=== PATIENT | male | born 1940 | race Caucasian/White ===

== ENCOUNTER 2022-07-06 17:28 | Inpatient (IN) | payer OTHER ==
[~2022-07-06] VITALS: Ht 170.2 cm; Wt 66.7 kg
[~2022-07-06 17:28] MED LIST: DIPH25CA83 PO; FAMO20TA8 PO; PRED20TA PO
[2022-07-06 17:36] VITALS: BP_SYST 181
[2022-07-06 18:07] LABS: BASOPHILS # (AUTO) 0.1 K/uL (0.0-0.2); BASOPHILS % (AUTO) 0.4 % (0.0-2.0); HEMATOCRIT 44.8 % (36-54); HEMOGLOBIN 14.6 g/dL (14.0-18.0); LYMPHOCYTES # (AUTO) 1.2 K/uL (1.0-5.5); LYMPHOCYTES % (AUTO) 8.4 % (20.5-51.5); MEAN CORPUSCULAR HEMOGLOBIN 30 pg (27-31); MEAN CORPUSCULAR HGB CONC 33 % (32-36); MEAN CORPUSCULAR VOLUME 90 fL (79.0-98.0); MONOCYTES # (AUTO) 0.8 K/uL (0.0-1.0); MONOCYTES % (AUTO) 5.4 % (1.7-9.3); NEUTROPHILS # (AUTO) 12.4 K/uL (1.8-7.7); NEUTROPHILS % (AUTO) 85.8 % (40.0-70.0); PLATELET COUNT (AUTO) 71 K/uL (130-430); RED BLOOD CELL COUNT(AUTO) 4.95 MIL/uL (4.2-6.2); RED CELL DISTRIBUTION WIDTH 15.5 % (9.0-15.0); WHITE BLOOD COUNT (AUTO) 14.5 K/uL (4.8-10.8)
[2022-07-06 18:14] LABS: ANION GAP 18 (5-15); CALCIUM 9.9 mg/dL (8.4-11.0); CHLORIDE 110 mmol/L (98-107); GLUCOSE 123 mg/dL (70-99)
[2022-07-06 18:28] LABS: ALANINE AMINOTRANSFERASE 33 U/L (12-78); ALBUMIN 3.6 g/dL (3.4-4.8); ASPARTATE AMINOTRANSFERASE 35 U/L (10-37); PHOSPHORUS 6.6 mg/dL (2.7-4.5); TOTAL BILIRUBIN 0.7 mg/dL (0.0-1.0)
[2022-07-06 18:31] LABS: UREA NITROGEN, BLOOD 114 mg/dL (8-21)
[2022-07-06] MEDS ORDERED: cefTRIAXone 1 GM in D5W 50 ML IV ONE (18:45)
[2022-07-06] MEDS ORDERED: NACL 0.9% 2,000 ML IV ONE (18:45)
[2022-07-06 19:07] LABS: CKMB RELATIVE INDEX 0.4 (0.0-2.9); CREATINE KINASE MB 5.6 ng/mL (0-3.6)
[2022-07-06 19:23] LABS: INR 1.4 (0.80-1.20)
[2022-07-06] MEDS ORDERED: ONDANSETRON HCL 4 MG/2 ML VIAL IVP PRN (20:00)
[2022-07-06 20:13] LABS: BILIRUBIN,URINE 1+ (NEGATIVE); BLOOD, URINE 3+ (NEGATIVE); CLARITY/URINE SL CLOUDY (CLEAR); COLOR,URINE YELLOW (YELLOW); GLUCOSE,URINE NEGATIVE (NEGATIVE); KETONES,URINE TRACE (NEGATIVE); LEUKOCYTE ESTERASE ,URINE NEGATIVE (NEGATIVE); NITRITE, URINE NEGATIVE (NEGATIVE); PROTEIN URINE 2+ (NEGATIVE); UROBILINOGEN,URINE 0.2 (0.2-1.0)
[2022-07-06] MEDS ORDERED: LISI20TA30 PO (20:14)
[2022-07-06] MEDS ORDERED: SER25 PO (20:14)
[2022-07-06] MEDS ORDERED: cefTRIAXone 1 GM VIAL ONE (20:14)
[2022-07-06] MEDS ORDERED: LOSA25TA3 PO (20:18)
[2022-07-06 20:46] LABS: BACTERIA,URINE FEW /HPF (None Seen)
[2022-07-06 20:47] LABS: COARSE GRANULAR CASTS,URINE 0-10 /LPF (None Seen); FINE GRANULAR CASTS,URINE 0-10 /LPF (None Seen); MUCUS,URINE None Seen /LPF (None Seen); URINE AMORPHOUS URATE 3+ /HPF (None Seen)
[2022-07-06 21:00] LABS: BARBITURATE, URINE NEGATIVE (NEG <=200); BENZODIAZEPINE, URINE NEGATIVE (NEG <=150); CANNABINOID, URINE NEGATIVE (NEG <=50); COCAINE, URINE NEGATIVE (NEG <=150); METHAMPHETAMINES SCREEN,URINE NEGATIVE (NEG <=500); PHENCYCLIDINE SCREEN,URINE NEGATIVE (NEG <=25); URINE AMPHETAMINE NEGATIVE (NEG <=500); URINE METHADONE NEGATIVE (NEG <=200)
[2022-07-06 21:01] LABS: OPIATE, URINE NEGATIVE (NEG <=100); UR TRICYCLIC ANTIDEPRESSANTS POSITIVE (NEG <=300); URINE OXYCODONE SCREEN NEGATIVE (NEG <=100); URINE PROPOXYPHENE SCREEN NEGATIVE (NEG <=300)
[2022-07-06] MEDS: NACL 0.9% 1,000 ML IV SCH ×2 (21:11→23:37)
[2022-07-06 22:30] VITALS: BP_SYST 132
[2022-07-06 22:48] VITALS: BP_SYST 132
[2022-07-07 03:02] VITALS: BP_SYST 128
[2022-07-07] MEDS: QUEtiapine FUMARATE 25 MG TABLET PO SCH ×2 (10:03→21:06)
[2022-07-07] MEDS: LORazepam 2 MG/ML VIAL IVP PRN ×2 (10:05→17:19)
[2022-07-07 12:12] VITALS: BP_SYST 146
[2022-07-07] MEDS: 0.45% NACL 1,000 ML IV SCH (14:13)
[2022-07-07 16:38] VITALS: BP_SYST 117
[2022-07-07 20:00] VITALS: BP_SYST 132
[2022-07-08] VITALS: BP_SYST 141
[2022-07-08] MEDS: 0.45% NACL 1,000 ML IV SCH ×3 (00:03→22:00)
[2022-07-08] MEDS: LORazepam 2 MG/ML VIAL IVP PRN ×2 (00:12→15:03)
[2022-07-08 04:00] VITALS: BP_SYST 163
[2022-07-08 05:00] VITALS: BP_SYST 149
[2022-07-08 05:18] LABS: BASOPHILS # (AUTO) 0.1 K/uL (0.0-0.2); BASOPHILS % (AUTO) 0.9 % (0.0-2.0); EOSINOPHILS # (AUTO) 0.1 K/uL (0.0-0.4); EOSINOPHILS % (AUTO) 1.8 % (0.0-4.0); HEMATOCRIT 36.7 % (36-54); HEMOGLOBIN 12.1 g/dL (14.0-18.0); LYMPHOCYTES # (AUTO) 0.9 K/uL (1.0-5.5); LYMPHOCYTES % (AUTO) 11.1 % (20.5-51.5); MEAN CORPUSCULAR HEMOGLOBIN 30 pg (27-31); MEAN CORPUSCULAR HGB CONC 33 % (32-36); MEAN CORPUSCULAR VOLUME 91 fL (79.0-98.0); MONOCYTES # (AUTO) 0.5 K/uL (0.0-1.0); MONOCYTES % (AUTO) 6.6 % (1.7-9.3); NEUTROPHILS # (AUTO) 6.2 K/uL (1.8-7.7); NEUTROPHILS % (AUTO) 79.6 % (40.0-70.0); PLATELET COUNT (AUTO) 83 K/uL (130-430); RED BLOOD CELL COUNT(AUTO) 4.02 MIL/uL (4.2-6.2); RED CELL DISTRIBUTION WIDTH 15.2 % (9.0-15.0); WHITE BLOOD COUNT (AUTO) 7.8 K/uL (4.8-10.8)
[2022-07-08 05:50] LABS: ANION GAP 12 (5-15); CALCIUM 8.8 mg/dL (8.4-11.0); CREATININE 2.13 mg/dL (0.55-1.30); GLUCOSE 109 mg/dL (70-99); UREA NITROGEN, BLOOD 76 mg/dL (8-21)
[2022-07-08 05:59] LABS: CHLORIDE 121 mmol/L (98-107)
[2022-07-08 08:05] VITALS: BP_SYST 160
[2022-07-08] MEDS: QUEtiapine FUMARATE 25 MG TABLET PO SCH ×2 (09:18→20:35)
[2022-07-08 14:28] VITALS: BP_SYST 163
[2022-07-08 20:00] VITALS: BP_SYST 149
[2022-07-08] MEDS: ACETAMINOPHEN 325 MG TABLET PO PRN (20:36)
[2022-07-09] VITALS: BP_SYST 134
[2022-07-09] MEDS: 0.45% NACL 1,000 ML IV SCH (03:00)
[2022-07-09] MEDS: LORazepam 2 MG/ML VIAL IVP PRN ×2 (05:03→22:41)
[2022-07-09 05:41] LABS: BASOPHILS % (AUTO) 0.7 % (0.0-2.0); EOSINOPHILS # (AUTO) 0.2 K/uL (0.0-0.4); EOSINOPHILS % (AUTO) 2.7 % (0.0-4.0); HEMATOCRIT 36.1 % (36-54); HEMOGLOBIN 12.1 g/dL (14.0-18.0); LYMPHOCYTES # (AUTO) 0.9 K/uL (1.0-5.5); LYMPHOCYTES % (AUTO) 12.4 % (20.5-51.5); MEAN CORPUSCULAR HEMOGLOBIN 30 pg (27-31); MEAN CORPUSCULAR HGB CONC 34 % (32-36); MEAN CORPUSCULAR VOLUME 89 fL (79.0-98.0); MONOCYTES # (AUTO) 0.5 K/uL (0.0-1.0); MONOCYTES % (AUTO) 6.7 % (1.7-9.3); NEUTROPHILS # (AUTO) 5.4 K/uL (1.8-7.7); NEUTROPHILS % (AUTO) 77.5 % (40.0-70.0); PLATELET COUNT (AUTO) 52 K/uL (130-430); RED BLOOD CELL COUNT(AUTO) 4.05 MIL/uL (4.2-6.2)
[2022-07-09 06:40] LABS: ANION GAP 13 (5-15); CALCIUM 8.5 mg/dL (8.4-11.0); CREATININE 1.34 mg/dL (0.55-1.30); GLUCOSE 101 mg/dL (70-99); UREA NITROGEN, BLOOD 46 mg/dL (8-21)
[2022-07-09 07:05] LABS: CHLORIDE 120 mmol/L (98-107)
[2022-07-09] MEDS: QUEtiapine FUMARATE 25 MG TABLET PO SCH (10:37)
[2022-07-09 12:38] VITALS: BP_SYST 138
[2022-07-09] MEDS ORDERED: HALOPERIDOL LACTATE 5 MG/ML VIAL IVP PRN (16:00)
[2022-07-09] MEDS: D5W 1,000 ML IV SCH ×2 (16:08→20:00)
[2022-07-09 16:09] VITALS: BP_SYST 136
[2022-07-09 20:00] VITALS: BP_SYST 148
[2022-07-10] VITALS: BP_SYST 131
[2022-07-10] MEDS: D5W 1,000 ML IV SCH ×3 (03:40→19:50)
[2022-07-10 07:12] LABS: BASOPHILS # (AUTO) 0.1 K/uL (0.0-0.2); BASOPHILS % (AUTO) 0.7 % (0.0-2.0); EOSINOPHILS # (AUTO) 0.3 K/uL (0.0-0.4); EOSINOPHILS % (AUTO) 2.7 % (0.0-4.0); HEMATOCRIT 37.4 % (36-54); HEMOGLOBIN 12.6 g/dL (14.0-18.0); LYMPHOCYTES # (AUTO) 1.3 K/uL (1.0-5.5); LYMPHOCYTES % (AUTO) 13.1 % (20.5-51.5); MEAN CORPUSCULAR HEMOGLOBIN 30 pg (27-31); MEAN CORPUSCULAR HGB CONC 34 % (32-36); MEAN CORPUSCULAR VOLUME 89 fL (79.0-98.0); MONOCYTES # (AUTO) 0.6 K/uL (0.0-1.0); MONOCYTES % (AUTO) 6.4 % (1.7-9.3); NEUTROPHILS # (AUTO) 7.5 K/uL (1.8-7.7); NEUTROPHILS % (AUTO) 77.1 % (40.0-70.0); PLATELET COUNT (AUTO) 61 K/uL (130-430); RED BLOOD CELL COUNT(AUTO) 4.23 MIL/uL (4.2-6.2); RED CELL DISTRIBUTION WIDTH 14.5 % (9.0-15.0); WHITE BLOOD COUNT (AUTO) 9.7 K/uL (4.8-10.8)
[2022-07-10 07:31] LABS: ANION GAP 10 (5-15); CALCIUM 8.4 mg/dL (8.4-11.0); CHLORIDE 110 mmol/L (98-107); CREATININE 1.24 mg/dL (0.55-1.30); GLUCOSE 167 mg/dL (70-99); UREA NITROGEN, BLOOD 29 mg/dL (8-21)
[2022-07-10 08:00] VITALS: BP_SYST 144
[2022-07-10] MEDS ORDERED: HALOPERIDOL LACTATE 5 MG/ML VIAL IM PRN (10:45)
[2022-07-10] MEDS ORDERED: ARIPiprazole 2 MG TAB PO ONE (12:15)
[2022-07-10 12:26] VITALS: BP_SYST 135
[2022-07-10] MEDS ORDERED: POTASSIUM CHLORIDE 40 MEQ, LIDOCAINE JECT 2% PF 100 MG 50 MG in NS 250 ML IV ONE (12:30)
[2022-07-10] MEDS: ENOXAPARIN SODIUM 40 MG/0.4 ML SYRINGE SUBCUT SCH (15:26)
[2022-07-10 16:51] VITALS: BP_SYST 140
[2022-07-10 20:00] VITALS: BP_SYST 148
[2022-07-11 01:19] VITALS: BP_SYST 143
[2022-07-11] MEDS: D5W 1,000 ML IV SCH ×2 (04:00→14:06)
[2022-07-11 06:20] LABS: BASOPHILS # (AUTO) 0.1 K/uL (0.0-0.2); BASOPHILS % (AUTO) 0.6 % (0.0-2.0); EOSINOPHILS # (AUTO) 0.3 K/uL (0.0-0.4); EOSINOPHILS % (AUTO) 2.9 % (0.0-4.0); HEMOGLOBIN 12.4 g/dL (14.0-18.0); LYMPHOCYTES # (AUTO) 1.5 K/uL (1.0-5.5); LYMPHOCYTES % (AUTO) 16.6 % (20.5-51.5); MEAN CORPUSCULAR HEMOGLOBIN 30 pg (27-31); MEAN CORPUSCULAR HGB CONC 34 % (32-36); MEAN CORPUSCULAR VOLUME 89 fL (79.0-98.0); MONOCYTES # (AUTO) 0.6 K/uL (0.0-1.0); MONOCYTES % (AUTO) 6.9 % (1.7-9.3); NEUTROPHILS # (AUTO) 6.6 K/uL (1.8-7.7); PLATELET COUNT (AUTO) 81 K/uL (130-430); RED BLOOD CELL COUNT(AUTO) 4.18 MIL/uL (4.2-6.2); RED CELL DISTRIBUTION WIDTH 14.1 % (9.0-15.0)
[2022-07-11 06:33] LABS: ALANINE AMINOTRANSFERASE 84 U/L (12-78); ALBUMIN 2.2 g/dL (3.4-4.8); ANION GAP 8 (5-15); ASPARTATE AMINOTRANSFERASE 87 U/L (10-37); CALCIUM 8.3 mg/dL (8.4-11.0); CHLORIDE 103 mmol/L (98-107); CREATININE 1.21 mg/dL (0.55-1.30); GLUCOSE 141 mg/dL (70-99); TOTAL BILIRUBIN 0.8 mg/dL (0.0-1.0); UREA NITROGEN, BLOOD 18 mg/dL (8-21)
[2022-07-11 08:00] VITALS: BP_SYST 140
[2022-07-11] MEDS: ARIPiprazole 2 MG TAB PO SCH (10:33)
[2022-07-11 12:13] VITALS: BP_SYST 142
[2022-07-11] MEDS: ENOXAPARIN SODIUM 40 MG/0.4 ML SYRINGE SUBCUT SCH (14:08)
[2022-07-11] MEDS ORDERED: POTASSIUM CHLORIDE 20 MEQ/PKT PACKET PO ONE (15:15)
[2022-07-11 16:00] VITALS: BP_SYST 141
[2022-07-11 20:00] VITALS: BP_SYST 125
[2022-07-11] MEDS: 0.45% NACL 1,000 ML IV SCH (21:00)
[2022-07-12 01:05] VITALS: BP_SYST 139
[2022-07-12 05:14] LABS: ALANINE AMINOTRANSFERASE 68 U/L (12-78); ANION GAP 9 (5-15); ASPARTATE AMINOTRANSFERASE 53 U/L (10-37); CALCIUM 8.1 mg/dL (8.4-11.0); CHLORIDE 104 mmol/L (98-107); CREATININE 0.96 mg/dL (0.55-1.30); GLUCOSE 111 mg/dL (70-99); TOTAL BILIRUBIN 0.5 mg/dL (0.0-1.0); UREA NITROGEN, BLOOD 11 mg/dL (8-21)
[2022-07-12] MEDS: 0.45% NACL 1,000 ML IV SCH ×2 (05:45→15:02)
[2022-07-12 06:12] LABS: BASOPHILS # (AUTO) 0.1 K/uL (0.0-0.2); BASOPHILS % (AUTO) 0.7 % (0.0-2.0); EOSINOPHILS # (AUTO) 0.2 K/uL (0.0-0.4); EOSINOPHILS % (AUTO) 2.8 % (0.0-4.0); HEMATOCRIT 36.2 % (36-54); HEMOGLOBIN 12.4 g/dL (14.0-18.0); LYMPHOCYTES # (AUTO) 1.5 K/uL (1.0-5.5); LYMPHOCYTES % (AUTO) 18.8 % (20.5-51.5); MEAN CORPUSCULAR HEMOGLOBIN 30 pg (27-31); MEAN CORPUSCULAR HGB CONC 34 % (32-36); MEAN CORPUSCULAR VOLUME 88 fL (79.0-98.0); MONOCYTES # (AUTO) 0.6 K/uL (0.0-1.0); MONOCYTES % (AUTO) 7.5 % (1.7-9.3); NEUTROPHILS # (AUTO) 5.6 K/uL (1.8-7.7); NEUTROPHILS % (AUTO) 70.2 % (40.0-70.0); PLATELET COUNT (AUTO) 99 K/uL (130-430); RED BLOOD CELL COUNT(AUTO) 4.11 MIL/uL (4.2-6.2); RED CELL DISTRIBUTION WIDTH 14.4 % (9.0-15.0); WHITE BLOOD COUNT (AUTO) 8.1 K/uL (4.8-10.8)
[2022-07-12] MEDS: ARIPiprazole 2 MG TAB PO SCH (09:40)
[2022-07-12 11:15] VITALS: BP_SYST 118
[2022-07-12] MEDS: ACETAMINOPHEN 325 MG TABLET PO PRN (12:10)
[2022-07-12] MEDS ORDERED: POTASSIUM CHLORIDE 20 MEQ TAB.PRT.SR PO ONE (13:30)
[2022-07-12] MEDS: ENOXAPARIN SODIUM 40 MG/0.4 ML SYRINGE SUBCUT SCH (15:00)
[2022-07-12 15:40] VITALS: BP_SYST 113
[2022-07-12] MEDS ORDERED: NACL 0.9% 1,000 ML IV SCH (21:00)
[2022-07-12 22:56] LABS: ANION GAP 9 (5-15); CALCIUM 8.1 mg/dL (8.4-11.0); CHLORIDE 104 mmol/L (98-107); CREATININE 1.07 mg/dL (0.55-1.30); GLUCOSE 137 mg/dL (70-99); UREA NITROGEN, BLOOD 16 mg/dL (8-21)
[2022-07-13 00:21] VITALS: BP_SYST 130
[2022-07-13] MEDS: LORazepam 2 MG/ML VIAL IVP PRN (02:56)
[2022-07-13 07:23] LABS: BASOPHILS # (AUTO) 0.1 K/uL (0.0-0.2); BASOPHILS % (AUTO) 0.7 % (0.0-2.0); EOSINOPHILS # (AUTO) 0.3 K/uL (0.0-0.4); HEMATOCRIT 35.4 % (36-54); HEMOGLOBIN 12.2 g/dL (14.0-18.0); LYMPHOCYTES # (AUTO) 1.5 K/uL (1.0-5.5); LYMPHOCYTES % (AUTO) 19.2 % (20.5-51.5); MEAN CORPUSCULAR HEMOGLOBIN 30 pg (27-31); MEAN CORPUSCULAR HGB CONC 34 % (32-36); MEAN CORPUSCULAR VOLUME 87 fL (79.0-98.0); MONOCYTES # (AUTO) 0.5 K/uL (0.0-1.0); NEUTROPHILS # (AUTO) 5.3 K/uL (1.8-7.7); NEUTROPHILS % (AUTO) 69.1 % (40.0-70.0); PLATELET COUNT (AUTO) 137 K/uL (130-430); RED BLOOD CELL COUNT(AUTO) 4.05 MIL/uL (4.2-6.2); RED CELL DISTRIBUTION WIDTH 14.4 % (9.0-15.0); WHITE BLOOD COUNT (AUTO) 7.7 K/uL (4.8-10.8)
[2022-07-13 07:34] LABS: PHOSPHORUS 1.9 mg/dL (2.7-4.5)
[2022-07-13 08:00] VITALS: BP_SYST 137
[2022-07-13] MEDS: ARIPiprazole 2 MG TAB PO SCH (09:43)
[2022-07-13] MEDS ORDERED: NA PHOS 15 MM in NS 250 ML IV ONE (14:00)
[2022-07-13] MEDS: ENOXAPARIN SODIUM 40 MG/0.4 ML SYRINGE SUBCUT SCH (16:14)
[2022-07-13 16:47] VITALS: BP_SYST 136
[2022-07-13] MEDS ORDERED: SER25 PO (17:33)
[2022-07-13] MEDS ORDERED: LOSA25TA3 PO (17:33)
== END 2022-07-13 18:30 | disposition home health service (06) | DRG 871 ==
LOC: SED 17:28 → STU 20:00 → SMU 07-10 11:22
PROVIDERS: ADMIT Internal Medicine; ATTEND Internal Medicine
DX: A41.9 Sepsis, unspecified organism (principal); G92.8 Other toxic encephalopathy; N17.0 Acute kidney failure with tubular necrosis; E87.0 Hyperosmolality and hypernatremia; N39.0 Urinary tract infection, site not specified; E46 Unspecified protein-calorie malnutrition; F23 Brief psychotic disorder; F19.921 Other psychoactive substance use, unspecified with intoxication with delirium; E86.0 Dehydration; K29.70 Gastritis, unspecified, without bleeding; E87.6 Hypokalemia; R62.7 Adult failure to thrive; D69.6 Thrombocytopenia, unspecified; F03.90 Unspecified dementia, unspecified severity, without behavioral disturbance, psychotic disturbance, mood disturbance, and anxiety; I10 Essential (primary) hypertension; Z20.822 Contact with and (suspected) exposure to COVID-19; Z88.0 Allergy status to penicillin; Z79.899 Other long term (current) drug therapy; Z68.23 Body mass index [BMI] 23.0-23.9, adult
CPT/HCPCS: 36415; 70450-TC; 71045; 76376; 76770; 80048; 80053; 80307; 81000; 82140; 82550; 82553; 83605; 83735; 83970; 84100; 84484; 85025; 85610-TC; 85730-TC; 86886; 86900; 86901; 87040; 87081; 92610-GN; 93005; 96365; 97110-GP; 97112-GP; 97116-GP; 97530-GP; 99291; G0378; J0696; J1630; J1650; J2060; J3480; J7050; J7060

== ENCOUNTER 2023-04-07 15:42 | Emergency (ER) | payer OTHER ==
[~2023-04-07] VITALS: Ht 172.7 cm; Wt 81.6 kg
[~2023-04-07 15:42] MED LIST changes: -DIPH25CA83 PO; -FAMO20TA8 PO; +LOSA-412 PO; -PRED20TA PO; +SER25 PO
[2023-04-07 15:54] VITALS: BP_SYST 163; PULSE 102; RESP 18; TEMP 97.9; O2SAT 98
[2023-04-07 16:43] LABS: BASOPHILS # (AUTO) 0.1 K/uL (0.0-0.2); BASOPHILS % (AUTO) 0.9 % (0.0-2.0); EOSINOPHILS # (AUTO) 0.1 K/uL (0.0-0.4); EOSINOPHILS % (AUTO) 2.1 % (0.0-4.0); HEMATOCRIT 35.7 % (36-54); HEMOGLOBIN 11.5 g/dL (14.0-18.0); LYMPHOCYTES # (AUTO) 1.9 K/uL (1.0-5.5); LYMPHOCYTES % (AUTO) 29.8 % (20.5-51.5); MEAN CORPUSCULAR HEMOGLOBIN 28 pg (27-31); MEAN CORPUSCULAR HGB CONC 32 % (32-36); MEAN CORPUSCULAR VOLUME 86 fL (79.0-98.0); MONOCYTES # (AUTO) 0.5 K/uL (0.0-1.0); MONOCYTES % (AUTO) 8.6 % (1.7-9.3); NEUTROPHILS # (AUTO) 3.7 K/uL (1.8-7.7); NEUTROPHILS % (AUTO) 58.6 % (40.0-70.0); PLATELET COUNT (AUTO) 190 K/uL (130-430); RED BLOOD CELL COUNT(AUTO) 4.17 MIL/uL (4.2-6.2); RED CELL DISTRIBUTION WIDTH 15.4 % (9.0-15.0); WHITE BLOOD COUNT (AUTO) 6.4 K/uL (4.8-10.8)
[2023-04-07 16:49] LABS: ANION GAP 8 (5-15); CALCIUM 9.2 mg/dL (8.4-11.0); CARBON DIOXIDE 29 mmol/L (23-29); CHLORIDE 104 mmol/L (98-107); CREATININE 0.87 mg/dL (0.55-1.30); GLUCOSE 169 mg/dL (74-106); POTASSIUM 4.2 mmol/L (3.5-5.1); SODIUM SERUM 141 mmol/L (136-145); UREA NITROGEN, BLOOD 17 mg/dL (8-21)
[2023-04-07 17:03] LABS: BILIRUBIN,URINE NEGATIVE (NEGATIVE); BLOOD, URINE NEGATIVE (NEGATIVE); CLARITY/URINE CLEAR (CLEAR); COLOR,URINE YELLOW (YELLOW); GLUCOSE,URINE NEGATIVE (NEGATIVE); KETONES,URINE NEGATIVE (NEGATIVE); LEUKOCYTE ESTERASE ,URINE NEGATIVE (NEGATIVE); NITRITE, URINE NEGATIVE (NEGATIVE); PROTEIN URINE NEGATIVE (NEGATIVE); UROBILINOGEN,URINE 0.2 (0.2-1.0)
[2023-04-07] MEDS ORDERED: APIX5TAB4 PO (18:50)
[2023-04-07 19:15] VITALS: BP_SYST 163; PULSE 102; RESP 18; TEMP 97.9; O2SAT 98
== END 2023-04-07 19:15 | disposition home or self-care (01) ==
LOC: SED 15:42
DX: I82.401 Acute embolism and thrombosis of unspecified deep veins of right lower extremity (principal); I10 Essential (primary) hypertension; Z79.899 Other long term (current) drug therapy
CPT/HCPCS: 36415; 76376; 80048; 81001; 81003; 85025; 93970; 99284